=== PATIENT | female | born 1985 | race Hispanic/Latino ===

== ENCOUNTER 2021-12-22 20:04 | Emergency (ER) | payer OTHER ==
--- OUTSIDE RECORDS SUMMARY | 2021-12-22 20:07 | XMS REPORT | Continuity of Care Document ---
:1985 Author Organization [facility] t Address [address] [place] [address] Care Team Providers Name Role Phone Unavailable Unavailable Unavailable Payers Payer Name Policy Type Policy Number Effective Date Expiration Date S ource Problems This patient has no known problems. Allergies, Adverse Reactions, Alerts Allergy Allergy Status Severity Reaction(s) Onset Inactive Treating Comm ents Source Name Type Date Date Clinician No Known DA Active U 2018-04 [facility] [place] Medications This patient has no known medications. Procedures This patient has no known procedures. Results Test Description Test Time Test Comments Results Result Comments Source HGB HCT 2019-03-30 06:30:00 Test Item Value Reference Range Interpretation Comme nts HEMOGLOBIN (test code = HGB) 11.3 g/dL 10.7-13.9 N HEMATOCRIT (test code = HCT) 32.8 % 32.1-42.1 N HGB [id number] 20:32:00 Test Item Value Reference Range Interpretation Comments HEMOGLOBIN (test code = HGB) 13.0 g/dL 10.7-13.9 N HEMATOCRIT (test code = HCT) 39.1 % 32.1-42.1 N AG HEPATITIS B [id number] 10:32:00 Test Item Value Reference Range Interpretation Comments AG HEPATITIS B SURFACE (test code NONREACTIVE NONREACTIVE = HBSAG) Comments to Business Services Intern: LDR 26IS CONSENT FORM SIGNED FOR HIV TESTING? YAB HEPATITIS C [id number] 10:32:00 Test Item Value Reference Range Interpretation Comments AB HEPATITIS C (test code = NONREACTIVE NONREACTIVE HCVAB) SIGNAL TO CUTOFF (test code = 0.04 <0.80 N CUTOFF) Comments to Business Services Intern: LDR 26IS CONSENT FORM SIGNED FOR HIV TESTING? YAB [id number] 10:32:00 Test Item Value Reference Range Interpretation Comments AB TREPONEMA (test code = TREPAB) NONREACTIVE NONREACTIVE Comments to Business Services Intern: LDR 26IS CONSENT FORM SIGNED FOR HIV TESTING? YAB HIV 1 10:32:00 Test Item Value Reference Range Interpretation Comments AB HIV 1 2 (test NONREACTIVE NONREACTIVE [facility] code = [id number]) 4th Gen HIV Ag/Ab Combo Screen Comments to Business Services Intern: LDR 26IS CONSENT FORM SIGNED FOR HIV TESTING? YAG HEPATITIS B [id number] 10:10:00 Test Item Value Reference Range Interpretation Comments AG HEPATITIS B SURFACE (test code NONREACTIVE NONREACTIVE = HBSAG) Comments to Business Services Intern: LDR 26IS CONSENT FORM SIGNED FOR HIV TESTING? YAB HEPATITIS C [id number] 10:10:00 Test Item Value Reference Range Interpretation Comments AB HEPATITIS C (test code = HCVAB) NONREACTIVE SIGNAL TO CUTOFF (test code = CUTOFF) <0.80 Comments to Business Services Intern: LDR 26IS CONSENT FORM SIGNED FOR HIV TESTING? YAB [id number] 10:10:00 Test Item Value Reference Range Interpretation Comments AB TREPONEMA (test code = TREPAB) NONREACTIVE NONREACTIVE Comments to Business Services Intern: LDR 26IS CONSENT FORM SIGNED FOR HIV TESTING? YAB HIV 1 10:10:00 Test Item Value Reference Range Interpretation Comments AB HIV 1 2 (test code = [id number]) NONREACTIVE Comments to Business Services Intern: LDR 26IS CONSENT FORM SIGNED FOR HIV TESTING? YCBC W/AUTO [id number] 09:27:00 Test Item Value Reference Range Interpretation Comments WHITE BLOOD CELL (test code = WBC) 9.4 K/mm3 6.6-12.1 N RED BLOOD CELL (test code = RBC) 3.44 M/mm3 3.45-5.01 L HEMOGLOBIN (test code = HGB) 11.4 g/dL 10.7-13.9 N HEMATOCRIT (test code = HCT) 33.8 % 32.1-42.1 N MEAN CELL VOLUME (test code = MCV) 98 fL 84.1-94.8 H MEAN CELL HGB (test code = MCH) 33.1 pg 27-35 N MEAN CELL HGB CONCETRATION (test 33.7 gm/dL 32.2-34.1 N code = MCHC) RED CELL DISTRIBUTION WIDTH (test 13.5 % 12.4-16.5 N code = RDW) PLATELET COUNT (test code = PLT) 128 K/mm3 133-385 L IMMATURE PLATELET FRACTION (test 5.3 % 0.0-10.8 N code = IPF) MEAN PLATELET VOLUME (test code = 11.2 fl 9.1-12.7 N MPV) NEUTROPHIL % (test code = NT%) 72.8 % 56.5-79.4 N LYMPHOCYTE % (test code = LY%) 13.5 % 14.3-34.3 L MONOCYTE % (test code = MO%) 10.3 % 5.1-10.4 N EOSINOPHIL % (test code = EO%) 1.7 % 0.1-3.0 N BASOPHIL % (test code = BA%) 0.3 % 0.1-1.0 N NEUTROPHIL # (test code = NT#) 6.9 K/mm3 LYMPHOCYTE # (test code = LY#) 1.3 K/mm3 MONOCYTE # (test code = MO#) 1.0 K/mm3 EOSINOPHIL # (test code = EO#) 0.16 K/mm3 BASOPHIL # (test code = BA#) 0.0 K/mm3 RBC MORPHOLOGY REQUIRED (test code NORMAL NORMAL = RBCM) PLATELET MORPHOLOGY REQUIRED (test NORMAL NORMAL code = PLTMR) CBC W/AUTO [id number] 09:26:00 Test Item Value Reference Range Interpretation Comments WHITE BLOOD CELL (test code = WBC) 9.4 K/mm3 6.6-12.1 N RED BLOOD CELL (test code = RBC) 3.44 M/mm3 3.45-5.01 L HEMOGLOBIN (test code = HGB) 11.4 g/dL 10.7-13.9 N HEMATOCRIT (test code = HCT) 33.8 % 32.1-42.1 N MEAN CELL VOLUME (test code = MCV) 98 fL 84.1-94.8 H MEAN CELL HGB (test code = MCH) 33.1 pg 27-35 N MEAN CELL HGB CONCETRATION (test 33.7 gm/dL 32.2-34.1 N code = MCHC) RED CELL DISTRIBUTION WIDTH (test 13.5 % 12.4-16.5 N code = RDW) PLATELET COUNT (test code = PLT) 128 K/mm3 133-385 L IMMATURE PLATELET FRACTION (test 5.3 % 0.0-10.8 N code = IPF) MEAN PLATELET VOLUME (test code = 11.2 fl 9.1-12.7 N MPV) NEUTROPHIL % (test code = NT%) 72.8 % 56.5-79.4 N LYMPHOCYTE % (test code = LY%) 13.5 % 14.3-34.3 L MONOCYTE % (test code = MO%) 10.3 % 5.1-10.4 N EOSINOPHIL % (test code = EO%) 1.7 % 0.1-3.0 N BASOPHIL % (test code = BA%) 0.3 % 0.1-1.0 N NEUTROPHIL # (test code = NT#) 6.9 K/mm3 LYMPHOCYTE # (test code = LY#) 1.3 K/mm3 MONOCYTE # (test code = MO#) 1.0 K/mm3 EOSINOPHIL # (test code = EO#) 0.16 K/mm3 BASOPHIL # (test code = BA#) 0.0 K/mm3 RBC MORPHOLOGY REQUIRED (test code NORMAL NORMAL = RBCM) PLATELET MORPHOLOGY REQUIRED (test NORMAL code = PLTMR) - US PREG UT [id number] 10:20:00 Patient Name: KATIE RECINOS Unit No: [id number] EXAMS: CPT CODE: [id number] US PREG UT TRANSVAGINAL [address] [facility] [address] [place], [place] [address] OBSTETRICAL ULTRASOUND REPORT Pat. Name: KATIE RECINOS Pat.No: [id number] Study Date: 01/26/2019 9:32am , Age: 04 1985, 33 Pregnancies: 3, Para 2LMP: Unknown GA by 1st: 30w2d GA by US: 29w4d GA Selected: 30w2d (From Known E) KERON: 04/04/2019 Referring MD: Leigha Reardon Stock Buyer: Robert Gibbs RDMS, RVT CPT4: USPRUTTRVG Hist/Ind: GROWTHSCAN 2 MEASUREMENTS AGEFETAL GROWTH EVALUATION Measurement GA Range Srce %for GA Ratios ----- ---- ------- BPD 7.3 cm 29w4d (90t6t-62t2q) Hadl BPD 28% FL/BPD 0.81 (0.71 - 0.87) HC 26.9 cm 29w0d (83y7x-46w1h) Hadl HC 23% FL/AC 0.23 (0.20 - 0.24) APD 7.9 cm APD HC/AC 1.03 (0.97 - 1.16) TAD 8.7 cm TAD CI 0.79 (0.70 - 0.86) AC 26.1 cm 30w2d (27w2d- 33w2d) Hadl AC 49% FL 5.9 cm 30w3d (23n7n-86c1o) Hadl FL 53% HL 5.0 cm 29w2d (13p9f-57o8k) Bertin HL 33% GA for sonogram 29w4d (08r6d-41y9t) Weight Estimate: based on (BPD,HC,AC,FL) Hadlock Weight: 1537 gm (6546-8814) Hadlo : 3lbs, 6oz Normal: 1509 gm (3347-3638) Brenn Wt% 52% for 30.3 wks Cervical Length: 3.5 cm HeartRate: 137 bpm Amniotic Fluid Index: 11.3cm (08.9-23.5) Q1: 3.0cm Q2: 1.7cm Q3: 3.8cm Q4: 2.8cm ------ CLINICAL SUMMARY Type of Gestation:Reyna Intrauterine in vertex presentation. size is appropriate for gestational age. growth: Consistent with normal growth motion and organs seen: heart motion seen Placental location: Posterior Fundal Left lateral Placental maturity : Grade 2 There is no evidence of placenta previa. [facility] NAME: KATIE RECINOS Radiology Department PHYS: Leigah Jaimes [address] : 1985 AGE: 33 SEX: [place], [place] [address] LOC: CANDACE PHONE #: [phone] EXAM DATE: 01/26/2019 STATUS: SOREN CLI FAX #: [phone] RAD NO: Page 1 Signed Report (CONTINUED) Patient Name: KATIE RECINOS Unit No: [id number] EXAMS: CPT CODE: [id number] [facility] TRANSVAGINAL [address] (Continued) Amniotic fluid volume is normal. Uterus and adnexa: No significant abnormality is seen. Thank you for allowing us to participate in thecare of this patient. Twan Ruiz M.D. Electronic Signature 01/26/2019 10:20am Revised " Manually signed by Twan Ruiz MD Reported and signed by: Twan Ruiz MD CC: Technologist: Robert Gibbs RDMS, RVT Probe: [id number] Trnscrbd D/ (1020) [email or web address] Advanced To Signed Dt/Tm/User: 02/16/19 (0829) [email or web address] Orig Print D/T: S: 02/16/2019 (08) [facility] NAME: KATIE RECINOS Radiology Department PHYS: Leigha Jaimes [address] : 1985 AGE: 33 SEX: [place] [address] LOC: ShantalRAD PHONE#: [phone] EXAM DATE: 01/26/2019 STATUS: DEP CLI FAX #: [phone] RAD NO: Page 2 Signed Report Patient Name: KATIE RECINOS Unit No: [id number] EXAMS: CPT CODE: [id number] US PREG UT TRANSVAGINAL [address] (Continued) [facility] [place] NAME: KATIE RECINOS Radiology Department PHYS: Leigha Jaimes [place] [address] : 1985 AGE: 33 SEX: [place] [address] LOC: ShantalRAD PHONE #: [phone] EXAM DATE: 01/26/2019 STATUS: DEP CLI FAX #: [phone] RAD NO: Page 3 Signed Report- US FLW [id number] 10:20:00 Patient Name: KATIE RECINOS Unit No: [id number] EXAMS: CPT CODE: [id number] [place] [address] [address] [place], [place] [address] OBSTETRICAL ULTRASOUND REPORT Pat. Name: KATIE RECINOS Pat. No: [id number] Study Date: 01/26/2019 9:32am , Age: 04 1985, 33 Pregnancies: 3, Para 2 LMP: Unknown GA by 1st: 30w2d GA by US: 29w4d GA Selected: 30w2d (From Known E) KERON: 04/04/2019 Referring MD: CARRI GRACE CPT4: USPREGFU Admitting MD: CARRI GRACE MEASUREMENTS AGE GROWTH EVALUATION Measurement GA Range Srce %for GA Ratios ----- ---- ------- BPD 7.3 cm 29w4d (68c0n-08q6n) Hadl BPD 28% FL/BPD 0.81 (0.71 - 0.87) HC 26.9 cm 29w0d (58z4j-67y5l) HadlHC 23% FL/AC 0.23 (0.20 - 0.24) APD 7.9 cm APD HC/AC 1.03 (0.97 - 1.16) TAD 8.7 cm TAD CI 0.79 (0.70- 0.86) AC 26.1 cm 30w2d (27w2d- 33w2d) Hadl AC 49% FL 5.9 cm 30w3d (93p5c-52y3l) Hadl FL 53% HL 5.0 cm 29w2d (34b7i-19w1p) Bertin HL 33% GA for sonogram 29w4d (31e3g-95x2n) Weight Estimate: based on (BPD,HC,AC,FL) Hadlock Weight: 1537 gm (5421-8533) Hadlo : 3lbs, 6oz Normal: 1509 gm (2429-0301) Brenn Wt% 52% for 30.3 wks Cervical Length: 3.5 cm Heart Rate: 137 bpm Amniotic Fluid Index: 11.3cm (08.9- 23.5) Q1: 3.0cm Q2: 1.7cm Q3: 3.8cm Q4: 2.8cm CLINICAL SUMMARY Type of Gestation: Reyna Intrauterine in vertex presentation. size is appropriate for gestational age. growth: Consistent with normal growth motion and organs seen: heart motion seen Placental location: Posterior Fundal Left lateral Placental maturity : Grade 2 There is no evidence of placenta previa. Amniotic fluid volume is normal. Uterus and adnexa: [facility] [place] NAME: KATIE RECINOS RadiologyDepartment PHYS: Leigha Jaimes [address] : 1985 AGE: 33 SEX: [place] LOC: ShantalRAD PHONE #: [phone] EXAM DATE: 01/26/2019 STATUS: REG CLI FAX #: [phone] RAD NO: Page 1 Signed Report (CONTINUED) Patient Name: KATIE RECINOS Unit No: [id number] EXAMS: CPT CODE: [id number] [place] [address] (Continued) No significant abnormalityis seen. Thank you for allowing us to participate in the care of this patient. Twan Ruiz M.D. Electronic Signature 01/26/2019 10:20am Electronically Signed by Twan Trujillo 01/26/2019 at 1020 Reported and signed by: Twan Ruiz MD CC: Carri Grace MD Technologist: Robert Gibbs RDMS, RVT Probe: Trnscrbd D/ (1020) [email or web address] Orig Print D/T: S: 01/26/2019 (1020) [facility] [place] NAME: KATIE RECINOS Radiology Department PHYS: Leigha Jaimes [address] : 1985 AGE: 33 SEX: [place] [id number] LOC: ShantalRAD PHONE #: [phone] EXAM DATE: 01/26/2019 STATUS: REG CLI FAX #: [phone] RAD NO: Page 2 Signed Report Patient Name: KATIE RECINOS Unit No: [id number] EXAMS: CPT CODE: [id number] [place] [address] (Continued) [facility] [place] NAME: KATIE RECINOS Radiology Department PHYS: Leigha Jaimes [address] : 1985 AGE: 33 SEX: [place] [address] LOC: ShantalRAD PHONE #: [phone] EXAM DATE: 01/26/2019 STATUS: REG CLI FAX #: [phone] RAD NO: Page 3 Signed Report- US PREG AFTER [id number] 09:44:00 Patient Name: KATIE RECINOS Unit No: [id number] EXAMS: CPT CODE: [id number] US PREG AFTER TRI [address] [facility] [address] [place], [place] [address] OBSTETRICAL ULTRASOUND REPORT ----- Pat. Name: KATIE RECINOS Pat. No: [id number] Study Date: 11/09/2018 8:47am , Age: 04 1985, 33 Pregnancies: 3, Para 2 LMP: Unknown GA by US: 18w6d GA Selected: 19w1d (From Known E) KERON: 04/04/2019 Referring MD: CARRI GRACE Stock Buyer: Genet Issa RDMS CPT4: [id number] Admitting MD: CARRI GRACE Hist/Ind: 1ST SCAN ANATOMY MEASUREMENTS AGE GROWTH EVALUATION Measurement GA Range Srce %for GA Ratios ----- ---- ------- BPD 4.3 cm 18w6d (78t3n-20z0x) Hadl BPD 40% FL/BPD 0.67 HC16.0 cm 18w5d (17w1d- 20w2d) Hadl HC 38% FL/AC 0.21 APD 4.3 cm APD HC/AC 1.15 (1.06 - 1.25) AGUADILLA 4.5 c TAD CI 0.80 (0.70 - 0.86) AC 13.8 cm 18w6d (72z0q-30h9w) Hadl AC 45% FL 2.9 cm 18w4d (31o0w-50n1l)Hadl FL 37% HL 2.7 cm 18w4d (39u4g-62x1k) Bertin HL 41% GA for sonogram 18w6d (21z2x-23x0c) Weight Estimate: based on (BPD,HC,AC,FL) Hadlock Weight: 272 gm (232-311) Hadlock : 0lbs, 9oz Cervical Length: 3.5 cm Heart Rate: 144 bpm MATERNAL ANATOMY Ovaries LxHxW (cm) Right 2.4 x 1.4 x 2.1 Vol: 3.7cc Left 2.9 x 2.3 x 2.0 Vol: 7.0cc Ovarian Cysts LxHxW (cm) L1: 1.4 x 0.9 x 1.5 Desc:Corpus Luteum CLINICAL SUMMARY Type of Gestation: SingletonIntrauterine in breech presentation. size is appropriate for gestational age. growth: Consistent with normal growth motion and organs seen: heart motion seen [facility] NAME: KATIE RECINOS Radiology Department PHYS: MONSERRAT - Carri Grace MD [address] : 1985 AGE: 33 SEX: [place], [place] [address] LOC: CANDACE PHONE #: [phone] EXAM DATE: 11/09/2018 STATUS: REG CLI FAX #: [phone] RAD NO: Page 1 Signed Report (CONTINUED) Patient Name: KATIE RECINOS Unit No: [id number] EXAMS: CPT CODE: [id number] PREG AFTER TRI 51048 (Continued) body and limb movements seen Four chamber heart observed Left ventricular outflow tract (LVOT) seen Right ventricular outflow tract (RVOT) seen Normal intracranial anatomy seen Umbilical cord insertion in fetus seen stomach, Renal Fossa, Bladder and Spine seen Three vessel umbilical cord noted abnormalities observed: None seen at this exam Placental location: Posterior Placental maturity : Grade 1 There is no evidence of placenta previa. Amniotic fluid volume is normal. Uterus and adnexa: No significant abnormality is seen. Thank you for allowing us to participate in the care of this patient. Matilda Beckman M.D. Electronic Signature 11/09/2018 09:44am at 0944 Reported and signed by: Matilda Beckman MD CC: Carri Grace MD Technologist: Genet Issa RDMS Probe: Trnscrbd D/ (0944) [email or web address] Orig Print D/T: S: 11/09/2018 (0944) [facility] [place] NAME: KATIE RECINOS Radiology Department PHYS: Carri Brown MD [address] : 1985 AGE: 33 SEX: [place] [address] LOC: ShantalRAD PHONE #: [phone] EXAM DATE: 11/09/2018 STATUS: REG CLI FAX #: [phone] RAD NO: Page2 Signed Report Patient Name: KATIE RECINOS Unit No: [id number] EXAMS: CPT CODE: [id number] US PREG AFTER TRI 55[address] (Continued) [facility] [place] NAME: KATIE RECINOS Radiology Department PHYS: Carri Brown MD [address] : 1985 AGE: 33 SEX: [place] [address] LOC: ShantalRAD PHONE #: [phone] EXAM DATE: 11/09/2018 STATUS: REG CLI FAX #: [phone] RAD NO: Page 3 Signed Report
[2021-12-22] MEDS ORDERED: DIAZEPAM 5 MG TABLET ONE (21:41)
[2021-12-22] MEDS ORDERED: FAMOTIDINE 20 MG TAB ONE (21:42)
[2021-12-22 21:58] LABS: Absolute Lymphocytes (CBC) 2.1 K/uL (0.7-4.9); Hematocrit 34.8 % (36.0-45.0); Lymphocytes % 21.7 % (15.3-44.8); MCV 93.6 fL (80-100); MPV 9.3 fL (7.6-11.3); RBC Red Blood Cell Count 3.71 M/uL (3.86-4.86)
--- NOTE | 2021-12-22 22:04 | RAD REPORT ---
EXAM DESCRIPTION: RAD - Chest Single View - 12/22/2021 9:42 pm CLINICAL HISTORY: Chest pain COMPARISON: None TECHNIQUE: AP portable chest image was obtained 12/22/2021 9:42 pm . FINDINGS: Lungs are clear. Heart and vasculature are normal. No measurable pleural effusion and no p neumothorax. No acute bony abnormality seen. No acute aortic findings suspected. IMPRESSION: No acute cardiopulmonary process.
[2021-12-22 22:10] LABS: Potassium 3.4 mmol/L (3.5-5.1); Troponin High Sensitivity 14.6 pg/mL (<58.9)
--- NOTE | 2021-12-23 00:33 | EDPHYS ---
Physician Documentation [facility] Name: Julissa Ricks Age: 36 yrs Sex: Female : 1985 Arrival Date: 12/22/2021 Time: 20:07 Bed 27 Private MD: ED Physician Woodrow Corona HPI: 12/22 21:31 This 36 yrs old Female presents to ER via Ambulatory with complaints of Chest snw Pain > 30 y/o, Shortness Of Breath. 21:31 The patient or guardian reports chest pain that is located primarily in the substernal snw area. The pain does not radiate. Associated signs and symptoms: Pertinent positives: feels like a pulling sensation with movement of head, mild headache to back of head, mild shortness of breath. The chest pain is described as a pressure. Duration: The patient or guardian reports multiple episodes, with no pattern. Severity of pain: At its worst the pain was mild moderate. The patient has not experienced similar symptoms in the past. The patient has been recently seen by a physician: the patient's primary care provider, with different complaint(s), blood pressure has been a little higher than patient's norm. 21:33 no CoVid vaccine. 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 - Social history:: Smoking status: Patient denies any tobacco usage or history of. ROS: 21:29 Eyes: Negative for injury, pain, redness, and discharge, ENT: Negative for injury, snw pain, and discharge, Neck: Negative for injury, pain, and swelling. 21:29 Abdomen/GI: Negative for abdominal pain, nausea, vomiting, diarrhea, and constipation, Back: Negative for injury and pain, : Negative for injury, bleeding, discharge, and swelling, MS/Extremity: Negative for injury and deformity, Skin: Negative for injury, rash, and discoloration, Neuro: Negative for headache, weakness, numbness, tingling, and seizure, Psych: Negative for depression, anxiety, suicide ideation, homicidal ideation, and hallucinations. 21:29 Constitutional: Positive for body aches, malaise. 21:29 Cardiovascular: Positive for chest pain, with movement, of the mid-sternal area, feels like a pulling sensation to back of head and mid sternal area, pt has noted increase in BP over the last few MD visits. Taking Bystolic HCTZ. 21:29 Respiratory: Positive for shortness of breath, at rest. feeling like it is a little harder to take a deep breath. Exam: 21:29 Constitutional: This is a well developed, well nourished patient who is awake, alert, snw and in no acute distress. Head/Face: Normocephalic, atraumatic. Eyes: Pupils equal round and reactive to light, extra-ocular motions intact. Lids and lashes normal. Conjunctiva and sclera are non-icteric and not injected. Cornea within normal limits. Periorbital areas with no swelling, redness, or edema. ENT: Nares patent. No nasal discharge, no septal abnormalities noted. Tympanic membranes are normal and external auditory canals are clear. Oropharynx with no redness, swelling, or masses, exudates, or evidence of obstruction, uvula midline. Mucous membranes moist. Neck: Trachea midline, no thyromegaly or masses palpated, and no cervical lymphadenopathy. Supple, full range of motion without nuchal rigidity, or vertebral point tenderness. No Meningismus. Chest/axilla: Normal chest wall appearance and motion. Nontender with no deformity. No lesions are appreciated. Cardiovascular: Regular rate and rhythm with a normal S1 and S2. No gallops, murmurs, or rubs. Normal PMI, no JVD. No pulse deficits. Respiratory: Lungs have equal breath sounds bilaterally, clear to auscultation and percussion. No rales, rhonchi or wheezes noted. No increased work of breathing, no retractions or nasal flaring. Abdomen/GI: Soft, non-tender, with normal bowel sounds. No distension or tympany. No guarding or rebound. No evidence of tenderness throughout. Back: No spinal tenderness. No costovertebral tenderness. Full range of motion. Skin: Warm, dry with normal turgor. Normal color with no rashes, no lesions, and no evidence of cellulitis. MS/ Extremity: Pulses equal, no cyanosis. Neurovascular intact. Full, normal range of motion. Neuro: Awake and alert, GCS 15, oriented to person, place, time, and situation. Cranial nerves II-XII grossly intact. Motor strength 5/5 in all extremities. Sensory grossly intact. Cerebellar exam normal. Normal gait. Psych: Awake, alert, with orientation to person, place and time. Behavior, mood, and affect are within normal limits. 22:21 ECG was reviewed by the Attending Physician. some mild st flattening in lead II and snw V4-6, recommend cardiology f/u Vital Signs: 20:29 BP 145 / 89; Pulse 58; Resp 18; Temp 98.2; Pulse Ox 100% ; Weight 65.77 kg; Height 5 kb3 ft. 3 in. (160.02 cm); Pain 3/10; 22:41 BP 127 / 82; Pulse 68; Resp 16 S; Pulse Ox 99% on R/A; bb 23:36 BP 127 / 80; Pulse 55; Resp 16 S; Pulse Ox 98% on R/A; bb 12/23 00:58 BP 117 / 84; Pulse 65; Resp 18; Temp 97.8; Pulse Ox 100% on R/A; wm 12/22 20:29 Body Mass Index 25.69 (65.77 kg, 160.02 cm) kb3 MDM: 12/22 20:51 Patient medically screened. snw 22:20 BOAZ Risk Score: 1 - Three or more CAD risk factors, [Family Hx], [HTN], 1 - Recent snw [<24hrs] Severe Angina, TOTAL SCORE = 1. Data reviewed: vital signs, nurses notes. Data interpreted: Pulse oximetry: on room air is 100 %. Interpretation: normal. Counseling: I had a detailed discussion with the patient and/or guardian regarding: the historical points, exam findings, and any diagnostic results supporting the discharge/admit diagnosis, the presence of at least one elevated blood pressure reading (>120/80) during this emergency department visit, lab results, radiology results, the need for outpatient follow up. Response to treatment: the patient's symptoms have mildly improved after treatment, the patient's symptoms have markedly improved after treatment. Special discussion: Based on the patient's history, exam, and Dx evaluation, there is no indication for emergent intervention or inpatient Tx. It is understood by the patient/guardian that if the Sx's persist or worsen they need to return immediately for re-evaluation. Based on the history and exam findings, there is no indication for further emergent testing or inpatient evaluation. I discussed with the patient/guardian the need to see the primary care provider for further evaluation of the symptoms. 12/22 21:24 Order name: Basic Metabolic Panel; Complete Time: 22:15 w 12/22 21:24 Order name: CBC with Diff; Complete Time: :w 12/22 21:24 Order name: Magnesium; Complete Time: :12/22 21:24 Order name: Troponin HS; Complete Time: :12/22 22:51 Order name: COVID-19 SARS RT PCR (Document "Date of Onset" if Symptomatic); Complete bb Time: 12/22 21:24 Order name: XRAY Chest (1 view); Complete Time: 22:w 12/22 21:24 Order name: EKG; Complete Time: 21:25 w 12/22 21:24 Order name: EKG - Nurse/Tech; Complete Time: :12/22 21:24 Order name: IV Saline Lock; Complete Time: 22:42 12/22 23:23 Order name: EKG; Complete Time: 23:23 12/22 21:24 Order name: Labs collected and sent; Complete Time: 22:42 12/22 21:24 Order name: O2 Per Protocol; Complete Time: 22:42 12/22 21:24 Order name: O2 Sat Monitoring; Complete Time: 22:42 snw Administered Medications: 21:35 Drug: Pepcid (famotidine) 20 mg Route: PO; bb 22:42 Follow up: Response: No adverse reaction bb 21:35 Drug: Valium (diazepam) 5 mg Route: PO; bb 22:42 Follow up: Response: Marked relief of symptoms bb Disposition Summary: 12/23/21 00:32 Discharge Ordered Location: Home snw Condition: Stable snw Diagnosis - Chest pain, unspecified snw - Essential (primary) hypertension snw Followup: snw - With: Emergency Department - When: As needed - Reason: Worsening of condition Followup: snw - With: Private Physician - When: 2 - 3 days - Reason: Recheck today's complaints, Continuance of care, Re-evaluation by your physician Discharge Instructions: - Discharge Summary Sheet snw - Nonspecific Chest Pain, Adult snw - Hypertension, Adult snw - Aspirin and Your Heart snw - Form - Blood Pressure Record Sheet snw Forms: - Medication Reconciliation Form snw - Thank You Letter snw - Antibiotic Education snw - Prescription Opioid Use snw - Work release form snw Prescriptions: - orphenadrine citrate 100 mg Oral Tablet Sustained Release - take 1 tablet by ORAL route 2 times per day As needed; 20 tablet; Refills: 0, snw Product Selection Permitted - Pepcid 20 mg Oral Tablet - take 1 tablet by ORAL route once daily; 20 tablet; Refills: 0, Product snw Selection Permitted Signatures: Dispatcher [employer] EDMS Talita Zimmer, GREASER OPERATOR-C GREASER OPERATOR-Csnw Ingris Ambrosio, RN RN Louisa Beckwith RN RN kb3 Corrections: (The following items were deleted from the chart) 23:35 21:29 SARS-COV-2 Antigen Rapid+I.LAB.BRZ ordered. EDMS EDMS
--- NOTE | 2021-12-23 00:33 | ER ---
Nurse's Notes [facility] Name: Julissa Ricks Age: 36 yrs Sex: Female : 1985 Arrival Date: 12/22/2021 Time: 20:07 Bed 27 Private MD: Diagnosis: Chest pain, unspecified;Essential (primary) hypertension Presentation: 12/22 20:29 Chief complaint: Patient states: Pt reports mid-sternal CP x1 day with associated SOB. kb3 Pain is wore with movement. Coronavirus screen: Vaccine status: Patient reports receiving the 2nd dose of the covid vaccine. Client denies travel out of the [place] in the last 14 days. At this time, the client does not indicate any symptoms associated with coronavirus-19. Ebola Screen: Patient negative for fever greater than or equal to 101.5 degrees Fahrenheit, and additional compatible Ebola Virus Disease symptoms Patient denies exposure to infectious person. Patient denies travel to an Ebola-affected area in the 21 days before illness onset. No symptoms or risks identified at this time. Initial Sepsis Screen: Does the patient meet any 2 criteria? No. Patient's initial sepsis screen is negative. Does the patient have a suspected source of infection? No. Patient's initial sepsis screen is negative. Risk Assessment: Do you want to hurt yourself or someone else? Patient reports no desire to harm self or others. Onset of symptoms was December 22, 2021 at 09:00. 20:29 Method Of Arrival: Ambulatory kb3 20:29 Acuity: VANGIE 3 kb3 Triage Assessment: 20:31 General: Appears in no apparent distress. Behavior is calm, cooperative. Pain: kb3 Complains of pain in mid-sternal area Pain does not radiate. Pain currently is 3 out of 10 on a pain scale. Quality of pain is described as Sore "like a muscle". 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 - Social history:: Smoking status: Patient denies any tobacco usage or history of. Screenin:35 Abuse screen: Denies threats or abuse. Nutritional screening: No deficits noted. bb Tuberculosis screening: No symptoms or risk factors identified. Fall Risk None identified. Assessment: 21:35 General: Appears in no apparent distress. Behavior is calm, cooperative. Pain: bb Complains of pain in chest Pain began suddenly. Neuro: Level of Consciousness is awake, alert, obeys commands, Oriented to person, place, time, situation. Cardiovascular: Capillary refill < 3 seconds Patient's skin is warm and dry. Respiratory: Respiratory effort is even, unlabored, Respiratory pattern is regular. GI: No signs and/or symptoms were reported involving the gastrointestinal system. Derm: Skin is pink, warm \\T\\ dry. Musculoskeletal: Circulation, motion, and sensation intact. 22:42 Reassessment: Patient is alert, oriented x 3, equal unlabored respirations, skin bb warm/dry/pink. pt resting quietly awaiting diagnostic results. 23:35 Reassessment: Patient is alert, oriented x 3, equal unlabored respirations, skin bb warm/dry/pink. IV site intact, no erythema or edema noted awaiting disposition. 12/23 00:53 Reassessment: Patient is alert, oriented x 3, equal unlabored respirations, skin bb warm/dry/pink. pt verbalized understanding of and agrees to plan of care discharge instructions given pt ambulated with steady gait to exit. Vital Signs: 12/22 20:29 BP 145 / 89; Pulse 58; Resp 18; Temp 98.2; Pulse Ox 100% ; Weight 65.77 kg; Height 5 kb3 ft. 3 in. (160.02 cm); Pain 3/10; 22:41 BP 127 / 82; Pulse 68; Resp 16 S; Pulse Ox 99% on R/A; bb 23:36 BP 127 / 80; Pulse 55; Resp 16 S; Pulse Ox 98% on R/A; bb 12/23 00:58 BP 117 / 84; Pulse 65; Resp 18; Temp 97.8; Pulse Ox 100% on R/A; wm 12/22 20:29 Body Mass Index 25.69 (65.77 kg, 160.02 cm) kb3 ED Course: 12/22 20:07 Patient arrived in ED. bp1 20:31 Triage completed. kb3 20:31 Arm band placed on right wrist. kb3 20:51 Talita Zimmer FNP-C is [facility]. snw 20:51 Woodrow Corona MD is Attending Physician. snw 21:09 Kyree Love, RN is Primary Nurse. as6 21:35 Patient has correct armband on for positive identification. Bed in low position. Call bb light in reach. Side rails up X 1. cartridge gauger on. Pulse ox on. NIBP on. Warm blanket given. 21:35 No provider procedures requiring assistance completed. bb 21:40 Initial lab(s) drawn, by me, sent to lab. Inserted saline lock: 20 gauge in left bb antecubital area, using aseptic technique. Blood collected. Patient maintains SpO2 saturation greater than 95% on room air. 21:44 XRAY Chest (1 view) In Process Unspecified. EDMS 12/23 00:34 EKG done, by ED staff, reviewed by Talita SMITH. wm 00:55 IV discontinued, intact, bleeding controlled, No redness/swelling at site. Pressure bb dressing applied. Administered Medications: 12/22 21:35 Drug: Pepcid (famotidine) 20 mg Route: PO; bb 22:42 Follow up: Response: No adverse reaction bb 21:35 Drug: Valium (diazepam) 5 mg Route: PO; bb 22:42 Follow up: Response: Marked relief of symptoms bb Medication: 21:35 VIS not applicable for this client. bb Outcome: 12/23 00:32 Discharge ordered by . snw 00:54 Discharged to home ambulatory. bb 00:54 Condition: stable 00:54 Discharge instructions given to patient, Instructed on discharge instructions, follow up and referral plans. medication usage, Demonstrated understanding of instructions, follow-up care, medications, Prescriptions given X 2. 00:59 Patient left the ED. wm Signatures: Dispatcher [employer] EDMS Talita Zimmer FNP-C FNP-Ingris Mead RN RN bb Angelica Ford Wendy Kyree Love, RN RN as6 Louisa Bradshaw RN RN kb3
[2021-12-23 02:09] VITALS: BP 117/84; TEMP 97.8; O2SAT 100
--- NOTE | 2021-12-23 08:13 | EKG ---
Test Date: 2021-12-23 Test Time: 00:31:27 Auto Inspector: GRECIA MEASUREMENT RESULTS: Intervals: Rate: 56 IN: 152 QRSD: 88 QT: 454 QTc: 438 Converse: P: 69 IN: 152 QRS: 56 T: 14 INTERPRETIVE STATEMENTS: Sinus bradycardia Nonspecific ST and T wave abnormality Abnormal ECG Compared to ECG 12/22/2021 20:40:11 Sinus rhythm no longer present Sinus arrhythmia no longer present Possible ischemia no longer present ST (T wave) deviation still present Electronically Signed On 12-23-21 08:11:54 CDT by Erik Rosas
--- NOTE | 2021-12-23 08:14 | EKG ---
Test Date: 2021-12-22 Test Time: 20:40:11 City Maintenance Manager: LUCINDA MEASUREMENT RESULTS: Intervals: Rate: 63 ME: 148 QRSD: 88 QT: 440 QTc: 450 Patterson: P: 71 ME: 148 QRS: 60 T: -30 INTERPRETIVE STATEMENTS: Normal sinus rhythm with sinus arrhythmia Possible Left atrial enlargement ST & T wave abnormality, consider inferior ischemia Abnormal ECG No previous ECG available for comparison Electronically Signed On 12-23-21 08:12:00 CDT by Erik Rosas
== END 2021-12-23 00:59 | disposition home or self-care (01) ==
LOC: ER 20:04
DX: R07.89 Other chest pain (principal); I10 Essential (primary) hypertension; Z20.822 Contact with and (suspected) exposure to COVID-19
CPT/HCPCS: 93005 ×2; 85025; 80048; 36415; 83735; 84484; 71045; U0003